=== PATIENT | male | born 1985 | race Caucasian/White ===

== ENCOUNTER 2016-05-13 13:03 | Outpatient (CLI) | payer OTHER ==
[2016-05-13 13:19] LABS: BASOPHILS % 0.3 (0.0-1.5); EOSINOPHILS % 2.9 % (0.0-6.8); LYMPHOCYTES # 2.1 # k/uL (0.6-4.0); MEAN CORPUSCULAR HEMOGLOBIN 30.3 pg (28.0-34.0); MONOCYTES # 0.4 # k/uL (0.0-0.9); MONOCYTES % 6.2 % (0.0-11.0); NEUTROPHILS # 3.3 # k/uL (1.4-7.7)
[2016-05-13 13:30] LABS: eGFR (African) > 60; eGFR (Non-African) > 60
[2016-05-13 17:48] VITALS: BP 121/68
== END 2016-05-13 13:04 ==
LOC: LAB 13:03
PROVIDERS: ATTEND General Practice
DX: K65.9 Peritonitis, unspecified (principal)
CPT/HCPCS: 80053; 85025

== ENCOUNTER 2016-05-13 13:55 | Emergency (ER) | payer OTHER ==
--- NOTE | 2016-05-13 14:21 | ED Physician Documentation ---
General Adult - HISTORIAN Historian: patient - HPI Stated Complaint: Abd pain since last night Chief Complaint: General Adult Onset: hours Timing: worse Severity: moderate Further Comments: yes (Pt is a 31 yo male inmate who awoke with RLQ abd pain last night. Pain has been getting worse throughout the day. Pt has had n/v and diarrhea. No blood seen. Pt reports previous hx bowel problems, including diverticulitis, and bowel obstruction for which he underwent surgery. Pain is in RLQ. (Pt denied appendectomy, but CT later showed abscent appendix)) - ROS CONST: no problems EYES/ENT: none CVS/RESP: none GI/: abdominal pain, vomiting, nausea, diarrhea MS/SKIN/LYMPH: none - PAST HX Past History: hypertension Surgeries/Procedures: other (abd surgery ? bowel obstruction, ? appendectomy) Allergies/Adverse Reactions: Allergies Allergy/AdvReac Type Severity Reaction Status Date / Time ketorolac tromethamine Allergy Unknown Verified 05/13/16 14:12 [From Toradol] nalbuphine HCl [From Nubain] Allergy Unknown Verified 05/13/16 14:12 Home Medications: Ambulatory Orders Medication Instructions Recorded Amlodipine Besylate/Benazepril 5 mg PO QDAY 05/13/16 [Amlodipine-Benazepril 5-10 mg] Losartan Potassium [Cozaar] 100 mg PO QDAY 05/13/16 - SOCIAL HX Smoking History: quit greater than 1 year - FAMILY HX Family History: No - VITAL SIGNS Vital Signs: Vital Signs Temp Pulse Resp BP Pulse Ox 97.8 F 104 H 16 146/85 99 05/13/16 14:05 05/13/16 14:05 05/13/16 14:05 05/13/16 14:05 05/13/16 14:05 - REVIEWED ASSESSMENTS Nursing Assessment Reviewed: Yes Vitals Reviewed: Yes Progress - Progress Progress: 1 L NS IVF Zofran 4 mg IV Dilaudid 1 mg IV Dilaudid 0.[address] abd/pelvis w IV contrast: The liver, spleen, pancreas, adrenals, kidneys, great vessels, and mesenteric structures are normal. Marked gallbladder contraction is observed. Bowel loops exhibit normal caliber and wall thickness. Appendectomy has been performed. Bilateral L5 pars defects and grade 1 lytic L5-S1 spondylolisthesis are observed. The urinary bladder, prostate, seminal vesicles, and pelvic bowel loops are unremarkable. No acute pelvic abnormality is observed. Posterior central L4-5 disc protrusion is noted. Pt had abd surgery for bowel obstruction, he reports. Pt was unaware of having had an appendectomy. 1 L NS IVF Ativan 1 mg IV [place] (5/325) 2 tabs po in ER. Rx Cipro 500 mg po bid x 7 days, 1st dose in ER - EKG/XRAY/CT CT: CT abd/pelvis w contrast: No acute inflammatory or obstructive process. ED Results Lab/Radiology - Orders Orders: ED Orders Category Date Time Status Place Saline Lock/IV Now Care 05/13/16 14:[address] ABD & PELVIS W/ CON Stat Exams 05/13/16 Ordered UA [URINALYSIS] Routine Lab 05/13/16 14:20 Received 0.9 % Sodium Chloride [Normal Saline] 1,000 ml Med 05/13/16 14:15 Active IV Q1H Ondansetron HCl/Pf [Zofran 4 mg/2 ml] Med 05/13/16 14:15 Discontinued 4 mg IVP NOW ONE General Adult Physical Exam - PHYSICAL EXAM GENERAL APPEARANCE: moderate distress EENT: eye inspection normal, ENT inspection normal, pharynx normal NECK: normal inspection, supple RESPIRATORY: no resp distress, chest non-tender, breath sounds normal CVS: reg rate & rhythm, heart sounds normal ABDOMEN: soft, normal bowel sounds, tenderness (RLQ tenderness) SKIN: warm/dry, normal color EXTREMITIES: non-tender, normal range of motion, no evidence of injury NEURO: oriented X3, motor nml, sensation nml Discharge Clincal Impression: possible early diverticulitis Abdominal pain Qualifiers: Abdominal location: right lower quadrant Qualified Code(s): R10.31 - Right lower quadrant pain Referrals: Duglas Beverly III, MD [Primary Care Provider] - 2 Days Additional Instructions: Rx Ciprofloxacin 500 mg. Take one every 12 hrs for 7 days. Home Medications: Ambulatory Orders Amlodipine Besylate/Benazepril [Amlodipine-Benazepril 5-10 mg] 5 mg PO QDAY Losartan Potassium [Cozaar] 100 mg PO QDAY 05/13/16 Condition: Stable Disposition: 01 HOME, SELF-CARE Decision to Admit: NO Decision Time: 17:23
[2016-05-13 14:24] LABS: APPEARANCE,URINE Clear (CLEAR); COLOR,URINE Yellow (YELLOW); OCCULT BLOOD,URINE Negative (NEGATIVE); PH URINE 6.5 (5.0 - 8.0); UROBILINOGEN URINE 0.2 Eu (0.2-1.0)
[2016-05-13] MEDS: 0.9 % SODIUM CHLORIDE 1,000 ML IV ONE ×2 (14:34→16:18)
[2016-05-13] MEDS: ONDANSETRON HCL/PF 4 MG/ 2ML VIAL IVP ONE (14:34)
[2016-05-13] MEDS: HYDROmorphone HCL/PF 1 MG/ML DISP.SYRIN IVP ONE ×2 (14:34→15:06)
[2016-05-13] MEDS: DICYCLOMINE HCL 20 MG TABLET PO ONE (15:41)
[2016-05-13] MEDS: LORazepam 2 MG/ML VIAL IVP ONE (16:18)
[2016-05-13] MEDS: HYDROcodone /APAP 5/325 1 EACH TABLET PO ONE (17:34)
[2016-05-13] MEDS: CIPROFLOXACIN HCL 500 MG TABLET PO ONE (17:34)
[2016-05-13 17:48] VITALS: BP 121/68
--- NOTE | 2016-05-14 07:03 | Diagnostic Imaging Report ---
[facility] [id number] [facility].[address] 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 ~The liver, spleen, pancreas, adrenals, kidneys, great vessels, and mesenteric structures are normal. ~Marked gallbladder contraction is observed. ~Bowel loops exhibit normal caliber and wall thickness. ~Appendectomy has been performed. ~ Bilateral L5 pars defects and grade 1 lytic L5-S1 spondylolisthesis are observed. ~The urinary bladder, prostate, seminal vesicles, and pelvic bowel loops are unremarkable. ~No acute pelvic abnormality is observed. ~Posterior central L4-5 disc protrusion is noted. IMPRESSION: ~ No acute inflammatory or obstructive process. ~ Contracted gallbladder, appendectomy, grade 1 lytic L5-S1 spondylolisthesis, and posterior central L4-5 disc protrusion noted. ~ Electronically signed on May 13, 2016 3:05:51 PM LIQUEFACTION SUPERVISOR by: Guanakito LOWRY
== END 2016-05-13 17:46 | disposition home or self-care (01) ==
LOC: ED 13:55
DX: R10.31 Right lower quadrant pain (principal)
CPT/HCPCS: 74177; 81002; 82150; 85379; 99282; 99283; J1170; J2060; J2405; A9270-GY; J7030; S1016

== ENCOUNTER 2016-07-15 14:19 | Outpatient (CLI) | payer OTHER ==
[2016-07-15 14:33] LABS: BASOPHILS % 0.5 (0.0-1.5); EOSINOPHILS % 2.9 % (0.0-6.8); MEAN CORPUSCULAR HEMOGLOBIN 29.8 pg (28.0-34.0); MEAN CORPUSCULAR VOLUME 87.3 fl (80.0-100.0); MONOCYTES % 6.3 % (0.0-11.0); NEUTROPHILS # 3.4 # k/uL (1.4-7.7)
[2016-07-15 14:42] LABS: eGFR (African) > 60; eGFR (Non-African) > 60
== END 2016-07-15 14:20 ==
LOC: LAB 14:19
PROVIDERS: ATTEND General Practice
DX: R10.9 Unspecified abdominal pain (principal)
CPT/HCPCS: 80053; 85025